=== PATIENT | male | born 1990 | race Two or more races ===

== ENCOUNTER 2019-01-17 13:38 | Emergency (ER) | payer SELFPAY ==
[~2019-01-17] VITALS: Ht 167.6 cm; Wt 81.6 kg
[2019-01-17 13:46] VITALS: BP 109/60
[2019-01-17 14:25] LABS: Basophils # (auto) 0 uL; Basophils % (auto) 0.3 % (0.0-2.0); Eosinophils # (auto) 0.2 uL; Eosinophils % (auto) 2.7 % (0.0-7.0); Hematocrit 44.4 % (41.0-53.0); Hemoglobin 15.1 g/dL (13.5-17.5); Lymphocytes # (auto) 1.9 uL; Lymphocytes % (auto) 28.6 % (10.0-50.0); Mean Corpuscular Hemoglobin 30.7 pg (28.0-32.0); Mean Corpuscular Volume 90.5 fL (80.0-100.0); Monocytes # (auto) 0.7 uL; Monocytes % (auto) 10.8 % (0.0-12.0); Neutrophils # (auto) 3.7 uL; Neutrophils % (auto) 57.6 % (37.0-80.0); Nucleated Red Blood Cells % 0.1 %; Platelet Count (auto) 228 10^3/uL (140-450); Red Cell Distribution Width 13.2 % (11.8-14.3); White Blood Cell 6.5 10^3/uL (4.4-10.8)
[2019-01-17 14:39] LABS: Albumin 3.8 g/dL (3.4-5.0); Calcium 9.2 mg/dL (8.5-10.1); Potassium 3.8 mmol/L (3.5-5.1)
[2019-01-17 14:44] LABS: BUN/Creatinine Ratio 11.1; Bilirubin, Total 0.4 mg/dL (0.2-1.0); Total Protein 7.4 g/dL (6.4-8.2)
[2019-01-17 17:05] LABS: Amphetamine Screen, Urine NEGATIVE (NEGATIVE); Barbiturate Scree,Urine NEGATIVE (NEGATIVE); Benzodiazephine Screen, Urine NEGATIVE (NEGATIVE); Cannabinoid Screen, Urine POSITIVE (NEGATIVE); Cocaine Screen, Urine NEGATIVE (NEGATIVE); Opiate Scree,Urine NEGATIVE (NEGATIVE); Phencyclidine Screen, Urine NEGATIVE (NEGATIVE)
[2019-01-17 17:14] LABS: Urine Bacteria NONE SEEN /hpf (None Seen); Urine Blood 2+ /uL (Negative); Urine Mucus FEW (None Seen); Urine Specific Gravity 1.032 (1.001-1.035); Urine WBC 1 /hpf (0 - 3)
[2019-01-17] MEDS ORDERED: cefTRIAXone SOD 1,000 MG VL IM ONE (21:00)
[2019-01-17] MEDS ORDERED: AZITHROMYCIN 250 MG TAB PO ONE (21:00)
[2019-01-17] MEDS ORDERED: PHENAZOPYRIDINE HCL 100 MG TAB PO ONE (21:00)
== END 2019-01-17 21:27 | disposition home or self-care (01) ==
LOC: ER 13:50
DX: N39.0 Urinary tract infection, site not specified (principal)
CPT/HCPCS: 36415; 74176; 80053; 80307; 81001; 83690; 85025; 96372; 99284; J0696

== ENCOUNTER 2020-05-18 07:35 | Emergency (ER) | payer MEDICAID, OTHER ==
[~2020-05-18] VITALS: Ht 170.2 cm; Wt 78.0 kg
[2020-05-18 07:56] VITALS: BP 139/94
[2020-05-18 08:35] LABS: Urine Bacteria NONE SEEN /hpf (None Seen); Urine Blood 2+ /uL (Negative); Urine Mucus FEW (None Seen); Urine Specific Gravity 1.033 (1.001-1.035); Urine WBC 2 /hpf (0 - 3)
== END 2020-05-18 10:17 | disposition home or self-care (01) ==
LOC: ER 07:35
DX: N50.812 Left testicular pain (principal); R31.9 Hematuria, unspecified
CPT/HCPCS: 76870; 81001

== ENCOUNTER 2024-11-11 12:24 | Inpatient (IN) | payer OTHER ==
[~2024-11-11] VITALS: Ht 175.3 cm; Wt 72.7 kg
--- NOTE | 2024-11-11 12:42 | ECG ---
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
--- NOTE | 2024-11-11 13:00 | ED.PDOC ---
Altered Mental Status HPI Comments 34 y.o male presents to the ED via EMS for an evaluation of a possible overdose. EMS reports on scene female of unknown relation to patient mentioned having a verbal argument with patient and went unresponsive shortly after. EMS found white powder substance on patient with track hyatt to upper extremity. EMS administrated given 4mg of Narcan IN with no response, then gave an additional 0.5mg prior to entering the ED and patient became responsive after. Patient presents with urine incontinence, woke up and was able to state his name and age. Patient denied any Fentanyl or Heroin use but is in distress and is not providing much information on assessment. 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, Treatment (4.5mg Narcan IN ) Quality: Decreased Alertness Recent: Other History of: None Associated Signs and Symptoms: None Past Medical History PAST MEDICAL HISTORY: Denies Surgical History: Denies all surgeries Family History Family History: Unknown Social History Smoker: Non-Smoker Alcohol: Denies ETOH Use Drugs: Denies Drug Use Lives In: Home Unable to Obtain due to: Other (patient is regaining conciousness but agitated ) Physical Exam General Appearance: Moderate Distress HEENT: Normal ENT Inspection, Pharynx Normal, TMs Normal Neck: Full Range of Motion, Non-Tender, Normal, Normal Inspection Respiratory: Chest Non-Tender, Lungs Clear, No Accessory Muscle Use, No Respiratory Distress, Normal Breath Sounds Cardiovascular: No Edema, No JVD, No Murmur, No Gallop, Normal Peripheral Pulses, Regular Rate/Rhythm Breast Exam: Deferred Gastrointestinal: No Organomegaly, Non Tender, No Pulsatile Mass, Normal Bowel Sounds, Soft Genitalia: Deferred Pelvic: Deferred Rectal: Deferred Extremities: No calf tenderness, Normal range of motion, No pedal edema Musculoskeletal : Apperance: Normal Neurologic: Disoriented, No Motor Deficits, No Sensory Deficits Cerebellar Function: NOT DONE Reflexes: NOT DONE Skin: Normal Color Peripheral Pulses: 3+ Radial (R), 3+ Radial (L) Lymphatic: No Adenopathy Was a procedure done? Was a procedure done?: No Differential Diagnosis (ALOC) Differential Diagnosis: Dehydration, Hypoxemia, Closed Head Injury, Drug Overdose, ETOH Intoxication X-Ray, Labs, Meds, VS Vital Signs Date Time Temp Pulse Resp B/P (MAP) Pulse Ox O2 Delivery O2 Flow Rate FiO2 11/11/24 13:15 71 12 120/67 (84) 100 11/11/24 12:31 117 11/11/24 12:30 98.0 108 14 136/76 (96) 94 98.0 Current Medications Medications (Trade) Dose Ordered Sig/Aleta Route Start Time Stop Time Status Last Admin Sodium Chloride 1,000 ml @ 1,000 mls/hr Q1H ONCE IV 11/11/24 12:45 11/11/24 13:44 11/11/24 13:05 Patient confused. Unable to get a history from the patient. He was given Narcan in the field. Establish intravenous access. Was given fluids. No sign of any injury. He does use drugs. Was given Narcan. CT of the head reviewed does not show any acute changes. Waiting for family. Continue monitoring. Time of 1ST Reevaluation: 12:54 Reevaluation 1ST: Unchanged Patient Education/Counseling: Other (Patient at the time of assessment is regaining consciousness but is confused ) Family Education/Counseling: No Family Present Departure 1 Departure Time of Disposition: 13:39 Impression: Primary Impression: Metabolic encephalopathy Disposition: ADMITTED INPATIENT Admit to: Med Surg Condition: Guarded Critical Care Note Critical Care Time?: Yes (90 min-critical care time only) Critical care comment: Confused Narcan Stability Stability form required: No I personally scribed for ALON SLATER MD ([email or web address]) on 11/11/24 at 13:00. Electronically submitted by Megan Green ([email or web address]). ALON SLATER MD Nov 11, 2024 13:00
[2024-11-11] MEDS: SODIUM CHLORIDE 0.9% 1,000 ML IV ONE (13:05)
[2024-11-11] MEDS: SODIUM CHLORIDE 0.9% 1,000 ML IVB ONE (13:59)
[2024-11-11] MEDS: NALOXONE HCL 1MG/ML 2ML SYRINGE IV ONE (13:59)
--- NOTE | 2024-11-11 14:38 | DVH ---
EXAM: CT HEAD WITHOUT CONTRAST INDICATION: altered TECHNIQUE: CT of the head without intravenous contrast. Coronal and sagittal reformatted images are s ubmitted. Radiation Dose : 1. Head: CT Dose: CTDI volume is 53.0 mGy. Dose-length product is 849.72 mGy*cm The dose indicators for CT are the volume Computed Tomography (CT) Dose Index (CTDIvol) and the Dose Length Product (DLP), and are measured in units of mGy and mGy-cm, respectively. These indicators are not patient dose, but values generated from the CT scanner acquisition factors. The report includes radiation exposure data for exposures received during this examination. All CT scans at this medical facility are performed using dose modulation techniques as appropriate to a performed exam including the following: Automated exposure control was utilized; adjustment of the MA and/or KV according to patient size; and use of iterative reconstruction technique. COMPARISON: None FINDINGS: There is no evidence of acute intracranial hemorrhage, extra-axial collection, mass effect, midline s hift, herniation or hydrocephalus. The ventricles, sulci and cisterns are age appropriate. The daniel-white differentiation is intact. The mastoid air cells are clear. Mucosal thickening in the sphenoid sinus. No depressed calvarial fracture. The surrounding soft tissues are unremarkable. IMPRESSION: 1. No evidence of acute intracranial abnormality.
[2024-11-12 02:06] VITALS: BP 114/67; PULSE 64; TEMP 98
[2024-11-12 02:19] LABS: Basophils # (auto) 0 10 ^3/uL (0-0.2); Basophils % (auto) 0.3 % (0.0-2.0); Eosinophils # (auto) 0.1 10 ^3/uL (0-0.8); Eosinophils % (auto) 0.4 % (0.0-7.0); Hematocrit 46.4 % (41.0-53.0); Hemoglobin 15.6 g/dL (13.5-17.5); Lymphocytes # (auto) 0.9 10 ^3/uL (0.4-5.4); Lymphocytes % (auto) 6.4 % (10.0-50.0); Mean Corpuscular Hemoglobin 30.5 pg (28.0-32.0); Mean Corpuscular Hgb Conc. 33.6 g/dL (32.0-36.0); Mean Corpuscular Volume 90.8 fL (80.0-100.0); Monocytes # (auto) 0.8 10 ^3/uL (0-1.3); Monocytes % (auto) 5.5 % (0.0-12.0); Neutrophils # (auto) 12.3 10 ^3/uL (1.6-8.6); Neutrophils % (auto) 87.4 % (37.0-80.0); Platelet Count (auto) 277 10^3/uL (140-450); Red Blood Cells 5.11 10^6/uL (4.5-5.90); Red Cell Distribution Width 13.9 % (11.8-14.3); White Blood Cell 14.1 10^3/uL (4.4-10.8)
[2024-11-12 02:36] LABS: Partial Thromboplastin Time 23.6 SEC (24.5-34.5); Prothrombin Time 10.6 sec (9.3-11.8)
[2024-11-12 02:38] LABS: Alanine Aminotransferase 37 U/L (7-40); Albumin 4.5 g/dL (3.2-4.8); Alkaline Phosphatase 71 U/L (46-116); Anion Gap 7 (5-15); Aspartate Aminotransferase 29 U/L (13-40); BUN/Creatinine Ratio 13.6 (10.0-20.0); Blood Urea Nitrogen 12 mg/dL (9-23); Calcium 9.6 mg/dL (8.7-10.4); Carbon Dioxide 29 mmol/L (20-31); Chloride 102 mmol/L (98-107); Magnesium 2.1 mg/dL (1.6-2.6); Sodium 138 mmol/L (136-145); Total Protein 7.3 g/dL (5.7-8.2)
[2024-11-12 02:39] LABS: Bilirubin, Total 0.5 mg/dL (0.2-1.0)
[2024-11-12 02:45] LABS: Glucose 107 mg/dL (74-106); Potassium 5.4 mmol/L (3.5-5.1)
[2024-11-12 04:34] LABS: Blood Alcohol < 3.0 mg/dL (<10)
[2024-11-12] MEDS ORDERED: InsuLIN REG 1unit/0.01ml Soln (100units/ml) IV ONE (06:45)
[2024-11-12] MEDS ORDERED: SODIUM CHLORIDE 0.9% 500 ML IV ONE (06:45)
[2024-11-12] MEDS ORDERED: DEXTROSE (50%) 50ML SYRG IV ONE (06:45)
[2024-11-12] MEDS ORDERED: PIPERACILLIN-TAZOB 3.375GM 100 ML IV ONE (06:45)
[2024-11-12 06:53] VITALS: RESP 17; O2SAT 99
[2024-11-12] MEDS: ALBUTEROL SULF 2.5 MG/0.5ML(0.5%) NEB SOLN NEB ONE (06:53)
[2024-11-12] MEDS ORDERED: SODIUM CHLORIDE 0.9% 1,000 ML IV SCH (09:00)
--- NOTE | 2024-11-12 09:41 | DVHHPRES ---
History of Present Illness Resident Creating Document: MAGALIE MIN RESIDENT History of Present Illness 33 year old male patient with no past medical history and past surgical history presented with complaints of altered level of consciousness. per ER provider, EMS reports on scene female of unknown relation to patient mentioned having a verbal argument with patient and went unresponsive shortly after. EMS found white powder substance on patient with track hyatt to upper extremity. EMS administrated given 4mg of Narcan IN with no response, then gave an additional 0.5mg prior to entering the ED and patient became responsive after. Patient presented with urine incontinence, woke up and was able to state his name and age. Patient denied any Fentanyl or Heroin use but was in distress and was not providing much information on assessment. On assessment at bedside, patient is currently alert and oriented, mentioned that the last thing he mentioned was he needs was going to pick his children and then he does not remember what happened after that and mentioned that the next thing he found that he was in the ER. Mentioning of mild nausea and headache, which is occipital He is currently denied any chest pain, shortness of breath, abdominal pain, hematochezia, melena. Patient was not able to give any other history Review of Systems Review of Systems Could not be done as Patient was not able to give any other history Allergies: Coded Allergies: NO KNOWN ALLERGIES (Unverified , 01/17/19) Medications Current Medications Medications Dose Ordered Sig/Aleta Route Start Time Stop Time Status Last Admin Dose Admin Sodium Chloride 1,000 ml @ 100 mls/hr Q10H IV 11/12/24 09:00 UNV Exam Vital Signs Vital Signs Date Time Temp Pulse Resp B/P (MAP) Pulse Ox O2 Delivery O2 Flow Rate FiO2 11/12/24 06:53 17 99 Room Air* 0 21 11/12/24 02:06 98.0 64 114/67 (83) 98.0 Exam Examination General Appearance: Alert, Oriented X3, Cooperative, No acute distress HEENT: EOMI Respiratory: Clear to auscultation, Normal air movement Cardiovascular: Regular rate, Normal S1, Normal S2 Abdominal: Normal bowel sounds Extremities: No cyanosis, No edema, Normal pulses, No tenderness/swelling Skin: No rashes, No breakdown Neuro: Normal gait, Normal speech, Strength at 5/5 X4 ext, Normal tone, Sensation intact, Cranial nerves 3-12 NL, Reflexes 2+ Psych/Mental Status: Mental status NL, Mood NL Labs/Xrays Labs Test 11/12/24 07:08 11/12/24 04:58 11/12/24 01:58 Range/Units Lactic Acid Level 1.1 0.4-2.0 mmol/L Thyroid Stimulating Hormone (TSH) 0.54 L 0.55-4.78 uIU/mL White Blood Count 14.1 H 4.4-10.8 10^3/uL Red Blood Count 5.11 4.5-5.90 10^6/uL Hemoglobin 15.6 13.5-17.5 g/dL Hematocrit 46.4 41.0-53.0 % Mean Corpuscular Volume 90.8 80.0-100.0 fL Mean Corpuscular Hemoglobin 30.5 28.0-32.0 pg Mean Corpuscular Hemoglobin Concent 33.6 32.0-36.0 g/dL Red Cell Distribution Width 13.9 11.8-14.3 % Platelet Count 277 140-450 10^3/uL Mean Platelet Volume 7.6 6.9-10.8 fL Neutrophils (%) (Auto) 87.4 H 37.0-80.0 % Lymphocytes (%) (Auto) 6.4 L 10.0-50.0 % Monocytes (%) (Auto) 5.5 0.0-12.0 % Eosinophils (%) (Auto) 0.4 0.0-7.0 % Basophils (%) (Auto) 0.3 0.0-2.0 % Neutrophils # (Auto) 12.3 H 1.6-8.6 10 ^3/uL Lymphocytes # (Auto) 0.9 0.4-5.4 10 ^3/uL Monocytes # (Auto) 0.8 0-1.3 10 ^3/uL Eosinophils # (Auto) 0.1 0-0.8 10 ^3/uL Basophils # (Auto) 0 0-0.2 10 ^3/uL Nucleated Red Blood Cells 0.0 % Prothrombin Time 10.6 9.3-11.8 sec Prothrombin Time INR 1.00 0.9-1.15 Activated Partial Thromboplast Time 23.6 L 24.5-34.5 SEC Sodium Level 138 136-145 mmol/L Potassium Level 5.4 H 3.5-5.1 mmol/L Chloride Level 102 98-107 mmol/L Carbon Dioxide Level 29 20-31 mmol/L Anion Gap 7 5-15 Blood Urea Nitrogen 12 9-23 mg/dL Creatinine 0.88 0.700-1.30 mg/dL Glomerular Filtration Rate Calc 117 >90 mL/min BUN/Creatinine Ratio 13.6 10.0-20.0 Serum Glucose 107 H 74-106 mg/dL Calcium Level 9.6 8.7-10.4 mg/dL Magnesium Level 2.1 1.6-2.6 mg/dL Total Bilirubin 0.5 0.2-1.0 mg/dL Aspartate Amino Transferase (AST) 29 13-40 U/L Alanine Aminotransferase (ALT) 37 7-40 U/L Alkaline Phosphatase 71 46-116 U/L Total Protein 7.3 5.7-8.2 g/dL Albumin 4.5 3.2-4.8 g/dL Plasma/Serum Blood Alcohol < 3.0 <10 mg/dL Assessment/Plan Assessment/Plan Assessment and plan # metabolic encephalopathy likely due to drug overdose Urine drug screen ordered Head CT # hyperkalemia Corrected Monitor BMP # sirs, questionable source of infection IV fluids IV antibiotics Lactic acid, blood culture, urine culture Follow up Case discussion with Dr. 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 For ELMO 11/11/24 In Process 24 Hours 21:27 Emergency Dysrhythmia ELMO 11/11/24 In Process Protocol 21:27 Rhythm Strips Once ELMO 11/11/24 In Process Every Shift 21:27 Drug Screen LAB 11/12/24 Logged 01:36 Urinalysis LAB 11/12/24 Logged 01:36 Electrocardigram EKG 11/12/24 Logged 06:34 Potassium LAB 11/12/24 Logged 10:34 Blood Culture RAMY 11/12/24 Uncollected 06:34 Urine Bacterial RAMY 11/12/24 Uncollected Culture 06:34 Date of Service: Nov 11, 2024 Billing Provider: SINAI ESCAMILLA MD Common Visit Codes: [id number] INP/OBS CARE (HIGH) MAGALIE MIN RESIDENT Nov 12, 2024 09:41 SINAI ESCAMILLA MD Nov 12, 2024 18:30
--- NOTE | 2024-11-12 09:55 | DVHPNRES ---
Progress Note Objective vital signs Vital Sign Date Time Temp Pulse Resp B/P (MAP) Pulse Ox O2 Delivery O2 Flow Rate FiO2 11/12/24 06:53 17 99 Room Air* 0 21 11/12/24 02:06 98.0 64 114/67 (83) 98.0 Total Intake and Output 11/11/24 11/11/24 11/12/24 15:00 23:00 07:00 Intake Total 1000 ml Balance 1000 ml medications Current Medications Medications Dose Ordered Sig/Aleta Route Start Time Stop Time Status Last Admin Dose Admin Sodium Chloride 1,000 ml @ 100 mls/hr Q10H IV 11/12/24 09:00 UNV laboratory and microbiology Test 11/12/24 07:08 Range/Units Serum Glucose Pending My Orders My Orders Orders - SHANEL WILLIS RESIDENT Procedure Category Date Status Time Sodium Chloride 0.9% PHA 11/12/24 Logged 09:00 Free T3 LAB 11/12/24 In Process 09:21 Free T4 (Free LAB 11/12/24 In Process Thyroxine) 09:21 Complete Blood Count LAB 11/12/24 In Process 09:42 Comprehensive LAB 11/12/24 In Process Metabolic Panel 09:42 SHANEL WILLIS RESIDENT Nov 12, 2024 09:55
[2024-11-12 09:59] LABS: Basophils # (auto) 0.1 10 ^3/uL (0-0.2); Basophils % (auto) 0.6 % (0.0-2.0); Eosinophils # (auto) 0.3 10 ^3/uL (0-0.8); Eosinophils % (auto) 2.7 % (0.0-7.0); Hematocrit 45.9 % (41.0-53.0); Hemoglobin 15.6 g/dL (13.5-17.5); Lymphocytes # (auto) 2.2 10 ^3/uL (0.4-5.4); Lymphocytes % (auto) 17.8 % (10.0-50.0); Mean Corpuscular Hemoglobin 30.7 pg (28.0-32.0); Mean Corpuscular Hgb Conc. 33.9 g/dL (32.0-36.0); Mean Corpuscular Volume 90.6 fL (80.0-100.0); Monocytes # (auto) 0.9 10 ^3/uL (0-1.3); Monocytes % (auto) 7.4 % (0.0-12.0); Neutrophils # (auto) 8.9 10 ^3/uL (1.6-8.6); Neutrophils % (auto) 71.5 % (37.0-80.0); Platelet Count (auto) 283 10^3/uL (140-450); Red Blood Cells 5.07 10^6/uL (4.5-5.90); Red Cell Distribution Width 13.9 % (11.8-14.3); White Blood Cell 12.5 10^3/uL (4.4-10.8)
[2024-11-12 10:00] LABS: Albumin 4.6 g/dL (3.2-4.8); Alkaline Phosphatase 73 U/L (46-116); Anion Gap 8 (5-15); BUN/Creatinine Ratio 14.5 (10.0-20.0); Blood Urea Nitrogen 12 mg/dL (9-23); Calcium 9.7 mg/dL (8.7-10.4); Carbon Dioxide 31 mmol/L (20-31); Chloride 101 mmol/L (98-107); Glucose 84 mg/dL (74-106); Potassium 4.3 mmol/L (3.5-5.1); Sodium 140 mmol/L (136-145); Total Protein 7.4 g/dL (5.7-8.2)
[2024-11-12 10:01] LABS: Bilirubin, Total 0.6 mg/dL (0.2-1.0)
[2024-11-12 10:06] LABS: Alanine Aminotransferase 44 U/L (7-40); Aspartate Aminotransferase 44 U/L (13-40)
[2024-11-12 10:37] LABS: Free T3 4.04 pg/mL (2.3-4.2)
[2024-11-12 10:38] LABS: Free T4 (Free Thyroxine) 1.53 ng/dL (0.89-1.76)
--- NOTE | 2024-11-13 13:12 | DVHDSRES ---
Discharge Summary Date of Admission Resident Creating Document: SHANEL WILLIS RESIDENT Nov 11, 2024 at 21:27 Date of Discharge: Nov 12, 2024 Admitting Diagnosis metabolic encephalopathy likely due to drug overdose Labs/Diagnostic Data: Laboratory Results Test 11/12/24 07:08 11/12/24 04:58 11/12/24 01:58 White Blood Count 12.5 10^3/uL (4.4-10.8) Red Blood Count 5.07 10^6/uL (4.5-5.90) Hemoglobin 15.6 g/dL (13.5-17.5) Hematocrit 45.9 % (41.0-53.0) Mean Corpuscular Volume 90.6 fL (80.0-100.0) Mean Corpuscular Hemoglobin 30.7 pg (28.0-32.0) Mean Corpuscular Hemoglobin Concent 33.9 g/dL (32.0-36.0) Red Cell Distribution Width 13.9 % (11.8-14.3) Platelet Count 283 10^3/uL (140-450) Mean Platelet Volume 7.9 fL (6.9-10.8) Neutrophils (%) (Auto) 71.5 % (37.0-80.0) Lymphocytes (%) (Auto) 17.8 % (10.0-50.0) Monocytes (%) (Auto) 7.4 % (0.0-12.0) Eosinophils (%) (Auto) 2.7 % (0.0-7.0) Basophils (%) (Auto) 0.6 % (0.0-2.0) Neutrophils # (Auto) 8.9 10 ^3/uL (1.6-8.6) Lymphocytes # (Auto) 2.2 10 ^3/uL (0.4-5.4) Monocytes # (Auto) 0.9 10 ^3/uL (0-1.3) Eosinophils # (Auto) 0.3 10 ^3/uL (0-0.8) Basophils # (Auto) 0.1 10 ^3/uL (0-0.2) Nucleated Red Blood Cells 0.0 % Sodium Level 140 mmol/L (136-145) Potassium Level 4.3 mmol/L (3.5-5.1) Chloride Level 101 mmol/L (98-107) Carbon Dioxide Level 31 mmol/L (20-31) Anion Gap 8 (5-15) Blood Urea Nitrogen 12 mg/dL (9-23) Creatinine 0.83 mg/dL (0.700-1.30) Glomerular Filtration Rate Calc 119 mL/min (>90) BUN/Creatinine Ratio 14.5 (10.0-20.0) Serum Glucose 84 mg/dL (74-106) Lactic Acid Level 1.1 mmol/L (0.4-2.0) Calcium Level 9.7 mg/dL (8.7-10.4) Total Bilirubin 0.6 mg/dL (0.2-1.0) Aspartate Amino Transferase (AST) 44 U/L (13-40) Alanine Aminotransferase (ALT) 44 U/L (7-40) Alkaline Phosphatase 73 U/L (46-116) Total Protein 7.4 g/dL (5.7-8.2) Albumin 4.6 g/dL (3.2-4.8) Free Thyroxine (T4) Calculated 1.53 ng/dL (0.89-1.76) Free Triiodothyronine (T3) pg/mL 4.04 pg/mL (2.3-4.2) Thyroid Stimulating Hormone (TSH) 0.54 uIU/mL (0.55-4.78) Prothrombin Time 10.6 sec (9.3-11.8) Prothrombin Time INR 1.00 (0.9-1.15) Activated Partial Thromboplast Time 23.6 SEC (24.5-34.5) Magnesium Level 2.1 mg/dL (1.6-2.6) Plasma/Serum Blood Alcohol < 3.0 mg/dL (<10) Other Laboratory Tests 11/12/24 07:08 Brief Hx & Hospital Course: A 34-year-old male with no significant past medical or surgical history presented with altered mental status after a reported verbal altercation. Emergency medical services found him unresponsive with needle track hyatt on his arms and suspected opioid overdose. He received 1 mg of naloxone with delayed response and eventually became alert in the emergency department. The patient reported occipital headache and nausea but was unable to provide additional history. On evaluation, he was alert and oriented. Laboratory workup revealed elevated potassium, which was corrected. Workup for metabolic encephalopathy likely secondary to drug overdose was initiated, including a head CT scan and urine toxicology. He also met criteria for systemic inflammatory response, with no clear source of infection identified, so intravenous fluids and antibiotics were started. Despite initial stabilization, the patient left the hospital against medical advice at 10 a.m. on November 12, 2024, limiting further evaluation and treatment. General Appearance: Alert, Oriented X3, Cooperative, No acute distress HEENT: EOMI Respiratory: Clear to auscultation, Normal air movement Cardiovascular: Regular rate, Normal S1, Normal S2 Abdominal: Normal bowel sounds Extremities: No cyanosis, No edema, Normal pulses, No tenderness/swelling Skin: No rashes, No breakdown Neuro: Normal gait, Normal speech, Strength at 5/5 X4 ext, Normal tone, Sensation intact, Cranial nerves 3-12 NL, Reflexes 2+ Psych/Mental Status: Mental status NL, Mood NL Case discussed with Dr Gaston Operations or Procedures EXAM: CT HEAD WITHOUT CONTRAST INDICATION: altered TECHNIQUE: CT of the head without intravenous contrast. Coronal and sagittal reformatted images are submitted. Radiation Dose : 1. Head: CT Dose: CTDI volume is 53.0 mGy. Dose-length product is 849.72 mGy*cm The dose indicators for CT are the volume Computed Tomography (CT) Dose Index (CTDIvol) and the Dose Length Product (DLP), and are measured in units of mGy and mGy-cm, respectively. These indicators are not patient dose, but values generated from the CT scanner acquisition factors. The report includes radiation exposure data for exposures received during this examination. All CT scans at this medical facility are performed using dose modulation techniques as appropriate to a performed exam including the following: Automated exposure control was utilized; adjustment of the MA and/or KV according to patient size; and use of iterative reconstruction technique. COMPARISON: None FINDINGS: There is no evidence of acute intracranial hemorrhage, extra-axial collection, mass effect, midline shift, herniation or hydrocephalus. The ventricles, sulci and cisterns are age appropriate. The daniel-white differentiation is intact. The mastoid air cells are clear. Mucosal thickening in the sphenoid sinus. No depressed calvarial fracture. The surrounding soft tissues are unremarkable. IMPRESSION: 1. No evidence of acute intracranial abnormality. Condition at Discharge: Stable Final Diagnosis/Problems List # metabolic encephalopathy likely due to drug overdose # hyperkalemia # sirs, without OD Discharge Disposition: AMA Discharge Statement: "Patient was advised to return to the ER or call 911 if any headaches, dizziness, shortness of breath, chest pain, abdominal pain, bleeding, fevers, or worsening of medical condition. Patient was counseled about treatment plan, medications, possible side effects, patientverbalized understanding. All questions were answered to the best of my ability. This discharge took greater then 30 minutes in planning, reviewing documentation, counseling the patient, and discussing with other team members." ASSESSMENT ASSESSMENT Assessment Date of Service: Nov 12, 2024 Billing Provider: SUNDAY GASTON MD Common Visit Codes: [id number] DISCH DAY >30min SHANEL WILLIS RESIDENT Nov 13, 2024 13:12 SUNDAY GASTON MD Nov 13, 2024 20:19
== END 2024-11-12 07:41 | disposition left against medical advice (07) | DRG 812 ==
LOC: ER 12:24 → EDBD 12:24 → OVERFLOW 21:27
PROVIDERS: ADMIT Student in an Organized Health Care Education/Training Program; ATTEND Student in an Organized Health Care Education/Training Program
DX: T50.991A Poisoning by other drugs, medicaments and biological substances, accidental (unintentional), initial encounter (principal); G92.8 Other toxic encephalopathy; R65.10 Systemic inflammatory response syndrome (SIRS) of non-infectious origin without acute organ dysfunction; Z53.29 Procedure and treatment not carried out because of patient's decision for other reasons; E87.5 Hyperkalemia; Z79.899 Other long term (current) drug therapy; Y92.89 Other specified places as the place of occurrence of the external cause
CPT/HCPCS: 36415; 70450; 80053; 80320; 83605; 83735; 84439; 84443; 84481; 85025; 85610; 85730; 93005; 94640; 96361; 96374; 99291; 99292; G0378